=== PATIENT | female | born 1990 | race Caucasian/White ===

== ENCOUNTER 2018-10-28 17:07 | Emergency (ER) | payer MEDICAID ==
[2018-10-28] MEDS ORDERED: IBUPROFEN 800 MG TABLET PO ONE (18:00)
--- NOTE | 2018-10-28 18:04 | ER Document Report ---
HPI - HPI Patient complains to provider of: Right hip pain Time Seen by Provider: 10/28/18 17:31 Onset: Other Onset/Duration: Persistent - 2 days ago Quality of pain: Sharp Pain Level: 4 Context: Patient states she slipped on a wet surface and fell landing on her right hip. Patient complains of persistent right lower back pain and hip pain. Patient denies any head injury or loss of consciousness. Patient denies any urinary symptoms. Associated Symptoms: Other - Right lower back, hip pain Exacerbated by: Standing, Movement, Walking Relieved by: Denies Similar symptoms previously: No Recently seen / treated by doctor: No - ROS ROS below otherwise negative: Yes Systems Reviewed and Negative: Yes All other systems reviewed and negative - CONSTITUTIONAL Constitutional: DENIES: Fever - NEURO Neurology: DENIES: Headache, Weakness - RESPIRATORY Respiratory: DENIES: Trouble Breathing, Coughing - GASTROINTESTINAL Gastrointestinal: DENIES: Nausea, Patient vomiting - URINARY Urinary: DENIES: Dysuria - MUSCULOSKELETAL Musculoskeletal: REPORTS: Extremity pain, Back Pain - DERM Skin Color: Normal Skin Problems: None Past Medical History - General Information source: Patient - Social History Smoking Status: Current Every Day Smoker Smoking Education Provided: Yes Frequency of alcohol use: None Drug Abuse: None Occupation: None Lives with: Family Family History: Reviewed & Not Pertinent Pulmonary Medical History: Reports: Hx Asthma Musculoskeletal Medical History: Reports Other - Sciatica Past Surgical History: Reports: Hx Section, Hx Orthopedic Surgery Vertical Provider Document - CONSTITUTIONAL Agree With Documented VS: Yes Exam Limitations: No Limitations General Appearance: WD/WN, No Apparent Distress - INFECTION CONTROL TRAVEL OUTSIDE OF THE [place] IN LAST 30 DAYS: No - HEENT HEENT: Atraumatic, Normocephalic - NECK Neck: Normal Inspection, Supple - RESPIRATORY Respiratory: Breath Sounds Normal, No Respiratory Distress - CARDIOVASCULAR Cardiovascular: Regular Rate, Regular Rhythm - BACK Back: Abnormal Inspection - Right side joint tenderness, no lower lumbar midline tenderness step-off or deformity. negative: CVA Tenderness-Right, CVA Tenderness-Left - MUSCULOSKELETAL/EXTREMETIES Musculoskeletal/Extremeties: MAEW, Tender - Right hip tenderness to posterior and lateral aspect, tenderness increases with range of motion, No Edema. negative: Eccymosis - NEURO Level of Consciousness: Awake, Alert, Appropriate Motor/Sensory: No Motor Deficit Notes: No saddle anesthesia, negative straight leg test bilaterally, no foot drop - DERM Integumentary: Warm, Dry, No Rash Course - Re-evaluation Re-evalutation: 10/28/18 19:20 The patient presents with low back pain without signs of spinal cord compression , cauda equina syndrome, infection, aneurysm, or other serious etiology. The patient is neurologically intact. Given the extremely risk of these diagnoses further testing and evaluation for these possibilities does not appear to be indicated at this time. Patient has been instructed to return if the symptoms worsen or change in any way. - Laboratory Laboratory results interpreted by me: 10/28/18 19:19 Labs- Entire Visit 10/28/18 18:18 Urine HCG, Qual NEGATIVE - Diagnostic Test Radiology reviewed: Reports reviewed Discharge - Discharge Clinical Impression: Low back pain Qualifiers: Chronicity: acute Back pain laterality: right Sciatica presence: without sciatica Qualified Code(s): M54.5 - Low back pain Sprain of right hip Qualifiers: Encounter type: initial encounter Qualified Code(s): S73.101A - Unspecified sprain of right hip, initial encounter Condition: Stable Disposition: HOME, SELF-CARE Instructions: Low Back Pain ([facility]), Muscle Relaxers ([facility]), Sprain ([facility]) Additional Instructions: Return immediately for any new or worsening symptoms Followup with your primary care provider, call tomorrow to make a followup appointment Follow-up with orthopedics for any persistent pain or problems Prescriptions: Metaxalone [Skelaxin 800 mg Tablet] 800 mg PO ASDIR PRN #15 tablet PRN Reason: Naproxen [Naprosyn 250 Nmg Tablet] 1 tab PO BID #14 tablet Forms: Smoking Cessation Education Referrals: [facility] [Provider Group] - Follow up as needed
--- NOTE | 2018-10-28 19:13 | RADIOLOGY REPORT (SQ) ---
EXAM DESCRIPTION: HIP RIGHT AP/LATERAL COMPLETED DATE/TIME: 10/28/2018 7:05 pm REASON FOR STUDY: fall right hip pain COMPARISON: None. NUMBER OF VIEWS: Two views. TECHNIQUE: AP and frog-leg view of the right hip. LIMITATIONS: None. FINDINGS: MINERALIZATION: Normal. RIGHT HIP: No fracture or dislocation. No worrisome bone lesions. OPPOSITE HIP: No fracture or dislocation. No worrisome bone lesions. SOFT TISSUES: No findings. OTHER: No other significant finding. IMPRESSION: NEGATIVE STUDY OF THE RIGHT HIP. NO RADIOGRAPHIC EVIDENCE OF ACUTE INJURY. TECHNICAL DOCUMENTATION: JOB ID: [id number] [employer]- All Rights Reserved Reading location - IP/workstation name: [email or web address]
--- NOTE | 2018-10-28 19:13 | RADIOLOGY REPORT (SQ) ---
EXAM DESCRIPTION: L SPINE WHOLE COMPLETED DATE/TIME: 10/28/2018 7:05 pm REASON FOR STUDY: fall COMPARISON: None. NUMBER OF VIEWS: Five views including obliques. TECHNIQUE: AP, lateral, oblique, and sacral radiographic images acquired of the lumbar spine. LIMITATIONS: None. FINDINGS: MINERALIZATION: Normal. SEGMENTATION: Normal. No transitional anatomy. ALIGNMENT: Normal. VERTEBRAE: Maintained height. No fracture or worrisome bone lesion. DISCS: Preserved height. No significant osteophytes or end plate irregularity. POSTERIOR ELEMENTS: Pedicles and facets are intact. No pars defect or posterior arch defects. HARDWARE: None in the spine. PARASPINAL SOFT TISSUES: Normal. PELVIS: Intact as visualized. No fractures or worrisome bone lesions. SI joints intact. OTHER: No other significant finding. IMPRESSION: NORMAL 5 VIEW LUMBAR SPINE. TECHNICAL DOCUMENTATION: JOB ID: [id number] [employer]- All Rights Reserved Reading location - IP/workstation name: [email or web address]
[2018-10-28 19:49] VITALS: BP 102/56
== END 2018-10-28 19:48 | disposition home or self-care (01) ==
LOC: ER 17:07
DX: S73.101A Unspecified sprain of right hip, initial encounter (principal); M25.551 Pain in right hip; M54.5 Low back pain; W01.0XXA Fall on same level from slipping, tripping and stumbling without subsequent striking against object, initial encounter; J45.909 Unspecified asthma, uncomplicated; F17.200 Nicotine dependence, unspecified, uncomplicated
CPT/HCPCS: 99283; 81025; 73502; 72110; J3490

== ENCOUNTER 2019-03-18 15:25 | Emergency (ER) | payer MEDICAID ==
[2019-03-18 15:34] VITALS: BP 101/64
--- NOTE | 2019-03-18 16:32 | ER Document Report ---
ED Medical Screen (RME) - General Chief Complaint: Dizziness Stated Complaint: BLURRED VISION Time Seen by Provider: 03/18/19 16:28 Mode of Arrival: Wheelchair Information source: Patient, Relative Notes: 28-year-old female presents to ED for concern fusion and feeling horrible. She states that her hearing is like she is in a tunnel she is got blurry vision and she feels like she is bowling inside of her head and chest. She denies any pain. Mother states she went from being fine a little off balance to have coherent within about an hour and a half. Patient states she is down to 3 times in the past never went and saw a provider. She states she was living with her aunt and her aunt told her that she had hypoglycemia and gave her drinks to eat and she was okay. She states she just went to a new doctor and had blood work earlier this week. She has a history of asthma and she had a . She is does smoke a pack a day. Patient is able to answer questions if you give her time. Lungs clear to auscultation. I have greeted and performed a rapid initial assessment of this patient. A comprehensive ED assessment and evaluation of the patient, analysis of test results and completion of medical decision making process will be conducted by an additional ED providers. TRAVEL OUTSIDE OF THE [place] IN LAST 30 DAYS: No - Related Data Allergies/Adverse Reactions: Iodine and Iodide Containing Produc Allergy (Verified 03/18/19 15:28) latex Allergy (Verified 03/18/19 15:28) Penicillins Allergy (Verified 03/18/19 15:28) promethazine [From Phenergan] Allergy (Verified 03/18/19 15:28) Past Medical History - Social History Chew tobacco use (# tins/day): No Frequency of alcohol use: Social Drug Abuse: None Pulmonary Medical History: Reports: Hx Asthma Renal/ Medical History: Denies: Hx Peritoneal Dialysis Past Surgical History: Reports: Hx Section, Hx Gynecologic Surgery - D&C, Hx Orthopedic Surgery Physical Exam - Vital signs Vitals: Temp Pulse Resp BP Pulse Ox 97.7 F 65 14 101/64 97 03/18/19 15:33 03/18/19 15:33 03/18/19 15:33 03/18/19 15:33 03/18/19 15:33 Course - Vital Signs Vital signs: Temp Pulse Resp BP Pulse Ox 97.7 F 65 14 101/64 97 03/18/19 15:33 03/18/19 15:33 03/18/19 15:33 03/18/19 15:33 03/18/19 15:33
[2019-03-18 17:40] LABS: ABSOLUTE EOSINOPHILS # (AUTO) 0.1 10^3/uL (0.0-0.6); ABSOLUTE LYMPHOCYTES (AUTO) 2.8 10^3/uL (0.5-4.7); ABSOLUTE MONOCYTES (AUTO) 0.4 10^3/uL (0.1-1.4); ABSOLUTE NEUT (AUTO) 4.8 10^3/uL (1.7-8.2); BASOPHILS % (AUTO) 0.3 % (0-2); EOSINOPHILS % (AUTO) 0.8 % (0-6); HEMATOCRIT 39.3 % (36.0-47.0); HEMOGLOBIN 13.4 g/dL (12.0-15.5); LYMPHOCYTES % (AUTO) 34.5 % (13-45); MEAN CORPUSCULAR HEMOGLOBIN 31.7 pg (27.0-33.4); MEAN CORPUSCULAR HGB CONC 34.2 g/dL (32.0-36.0); MEAN CORPUSCULAR VOLUME 93 fl (80-97); MONOCYTES % (AUTO) 5.3 % (3-13); PLATELET COUNT 294 10^3/uL (150-450); RED BLOOD COUNT 4.24 10^6/uL (3.72-5.28); RED CELL DISTRIBUTION WIDTH 12.9 % (11.5-14.0); SEGMENTED NEUTROPHILS % (AUTO) 59.1 % (42-78); TOTAL CELLS COUNTED % (AUTO) 100 %; WHITE BLOOD COUNT 8.1 10^3/uL (4.0-10.5)
[2019-03-18 17:56] LABS: APPEARANCE,URINE CLEAR; BILIRUBIN,URINE NEGATIVE (NEGATIVE); COLOR,URINE STRAW; GLUCOSE, URINE NEGATIVE (NEGATIVE); KETONES,URINE NEGATIVE (NEGATIVE); LEUKOCYTE ESTERASE,URINE NEGATIVE (NEGATIVE); NITRITE,URINE NEGATIVE (NEGATIVE); PROTEIN,URINE NEGATIVE (NEGATIVE); UROBILINOGEN,URINE NEGATIVE mg/dL (<2.0)
[2019-03-18 18:05] LABS: ALANINE AMINOTRANSFERASE 20 U/L (9-52); ALBUMIN 3.7 g/dL (3.5-5.0); ALKALINE PHOSPHATASE 54 U/L (38-126); ANION GAP 5 (5-19); ASPARTATE AMINO TRANSFERASE 17 U/L (14-36); BILIRUBIN,DIRECT 0.2 mg/dL (0.0-0.4); BILIRUBIN,TOTAL 0.6 mg/dL (0.2-1.3); BLOOD UREA NITROGEN 13 mg/dL (7-20); CALCIUM 9.2 mg/dL (8.4-10.2); CARBON DIOXIDE 26 mmol/L (22-30); CHLORIDE 107 mmol/L (98-107); GLUCOSE 90 mg/dL (75-110); POTASSIUM 4.7 mmol/L (3.6-5.0); SODIUM 138.3 mmol/L (137-145); TOTAL PROTEIN 6.3 g/dL (6.3-8.2)
[2019-03-18 18:13] LABS: URINE AMPHETAMINES SCREEN NEGATIVE; URINE BARBITURATES SCREEN NEGATIVE; URINE BENZODIAZEPINES SCREEN NEGATIVE; URINE COCAINE SCREEN NEGATIVE; URINE MARIJUANA (THC) SCREEN NEGATIVE; URINE METHADONE SCREEN NEGATIVE; URINE PHENCYCLIDINE SCREEN NEGATIVE
== END 2019-03-18 17:22 | disposition left against medical advice (07) ==
LOC: ER 15:25
DX: Z53.21 Procedure and treatment not carried out due to patient leaving prior to being seen by health care provider (principal); H53.8 Other visual disturbances; R42 Dizziness and giddiness; R73.9 Hyperglycemia, unspecified; J45.909 Unspecified asthma, uncomplicated
CPT/HCPCS: 36415; 80053; 80307; 81001; 82962; 84703; 85025; 99281

== ENCOUNTER 2019-06-13 23:49 | Emergency (ER) | payer MEDICAID ==
[2019-06-14] MEDS ORDERED: PREDNISONE 20 MG TABLET PO ONE (00:12)
[2019-06-14] MEDS ORDERED: FAMOTIDINE 20 MG TABLET PO ONE (00:12)
[2019-06-14] MEDS ORDERED: DIPHENHYDRAMINE HCL 50 MG CAPSULE PO ONE (00:12)
--- NOTE | 2019-06-14 00:13 | ER Document Report ---
ED General - General Chief Complaint: Breathing Difficulty Stated Complaint: POSSIBLE ALLERGIC REACTION Time Seen by Provider: 06/14/19 00:04 Primary Care Provider: SUSY MENG FNP-C [Primary Care Provider] - Follow up as needed Notes: 28-year-old female had some garlic or something and developed hives and itching. States that she has multiple allergies. Was nervous so came here. Took a Benadryl prior to arrival. Denies any difficulty breathing, tongue swelling. States that she was just itching all over and had some redness on her neck. TRAVEL OUTSIDE OF THE [place] IN LAST 30 DAYS: No - HPI Onset: Just prior to arrival Onset/Duration: Sudden Quality of pain: No pain Severity: Moderate Pain Level: Denies - Related Data Allergies/Adverse Reactions: Iodine and Iodide Containing Produc Allergy (Verified 03/18/19 15:28) latex Allergy (Verified 03/18/19 15:28) Penicillins Allergy (Verified 03/18/19 15:28) promethazine [From Phenergan] Allergy (Verified 03/18/19 15:28) Past Medical History - General Information source: Patient - Social History Smoking Status: Current Every Day Smoker Frequency of alcohol use: None Drug Abuse: None Lives with: Family Family History: Reviewed & Not Pertinent Pulmonary Medical History: Reports: Hx Asthma Renal/ Medical History: Denies: Hx Peritoneal Dialysis Past Surgical History: Reports: Hx Section, Hx Gynecologic Surgery - D&C, Hx Orthopedic Surgery Review of Systems - Review of Systems Notes: Constitutional: denies: Chills, Diaphoresis, Fever, Malaise, Weakness EENT: denies: Eye discharge, Blurred vision, Tearing, Double vision, Nose congestion, Nose discharge, Throat swelling, Mouth pain Cardiovascular: denies: Palpitations, Heart racing, Orthopnea, Dyspnea, Chest pain Respiratory: denies: Cough, Hurts to breathe, Wheezing, Shortness of breath Gastrointestinal: denies: Abdominal pain, Diarrhea, Nausea, Vomiting, Black stools, bright red blood in stool Genitourinary: denies: Burning, Dysuria, Discharge, Frequency, Flank pain, Hematuria Musculoskeletal: denies: Joint pain, Joint swelling, Muscle pain, Muscle stiffness, back pain Hematologic/Lymphatic: denies: Anemia, Easy bleeding, Easy bruising, Blood clots Neurological/Psychological: denies: Confusion, Dementia, Depression, Loss of consciousness Skin: No lesions, no masses, no skin breakdown, no abscesses, positive for rash Physical Exam - Vital signs Vitals: Temp Pulse Resp BP Pulse Ox 97.9 F 76 16 107/55 L 98 06/14/19 00:04 06/14/19 00:04 06/14/19 00:04 06/14/19 00:04 06/14/19 00:04 Interpretation: Normal - General General appearance: Appears well, Alert - HEENT Head: Normocephalic, Atraumatic Eyes: Normal Pupils: PERRL - Respiratory Respiratory status: No respiratory distress Chest status: Nontender Breath sounds: Normal Chest palpation: Normal - Cardiovascular Rhythm: Regular Heart sounds: Normal auscultation Murmur: No - Abdominal Inspection: Normal Distension: No distension Bowel sounds: Normal Tenderness: Nontender Organomegaly: No organomegaly - Back Back: Normal, Nontender - Extremities General upper extremity: Normal inspection, Nontender, Normal color, Normal ROM, Normal temperature General lower extremity: Normal inspection, Nontender, Normal color, Normal ROM, Normal temperature, Normal weight bearing. No: Toshia's sign - Neurological Neuro grossly intact: Yes Cognition: Normal Orientation: AAOx4 Althea Coma Scale Eye Opening: Spontaneous [place]a Coma Scale Verbal: Oriented [place] Coma Scale Motor: Obeys Commands Althea Coma Scale Total: 15 Speech: Normal Motor strength normal: LUE, RUE, LLE, RLE Sensory: Normal - Psychological Associated symptoms: Normal affect, Normal mood - Skin Skin Temperature: Warm Skin Moisture: Dry Skin Color: Normal Course - Re-evaluation Re-evalutation: 06/14/19 01:56 Patient was given oral medication as she had no sign of a rash, angioedema, lip swelling or other issues. She had no tachycardia when I listen to her heart. She had no wheezing. Patient was observed here for's several hours. Will DC at this time. She did receive Benadryl, Pepcid and prednisone. - Vital Signs Vital signs: Temp Pulse Resp BP Pulse Ox 98.5 F 76 18 111/57 L 97 06/14/19 00:07 06/14/19 00:04 06/14/19 00:07 06/14/19 00:07 06/14/19 00:07 Discharge - Discharge Clinical Impression: Acute allergic reaction Qualifiers: Encounter type: initial encounter Qualified Code(s): T78.40XA - Allergy, unspecified, initial encounter Condition: Good Disposition: HOME, SELF-CARE Instructions: Acute Allergic Reaction ([facility]) Prescriptions: Diphenhydramine HCl 50 mg PO Q8H PRN 3 Days #10 tablet PRN Reason: Rash Prednisone [Deltasone 20 mg Tablet] 3 tab PO DAILY 2 Days #6 tablet Ranitidine HCl [Zantac] 150 mg PO BID 3 Days #6 tablet Referrals: SUSY MENG FNP-C [Primary Care Provider] - Follow up as needed
[2019-06-14 03:16] VITALS: BP 104/66
== END 2019-06-14 02:35 | disposition home or self-care (01) ==
LOC: ER 23:49
DX: T78.40XA Allergy, unspecified, initial encounter (principal); X58.XXXA Exposure to other specified factors, initial encounter; J45.909 Unspecified asthma, uncomplicated; F17.200 Nicotine dependence, unspecified, uncomplicated; Z91.040 Latex allergy status; Z88.0 Allergy status to penicillin; Z88.8 Allergy status to other drugs, medicaments and biological substances
CPT/HCPCS: 99284; J3490 ×2; J7512

== ENCOUNTER 2019-06-30 16:49 | Emergency (ER) | payer MEDICAID ==
[2019-06-30 18:26] LABS: ABSOLUTE EOSINOPHILS # (AUTO) 0.1 10^3/uL (0.0-0.6); ABSOLUTE LYMPHOCYTES (AUTO) 2.4 10^3/uL (0.5-4.7); ABSOLUTE MONOCYTES (AUTO) 0.5 10^3/uL (0.1-1.4); ABSOLUTE NEUT (AUTO) 5.1 10^3/uL (1.7-8.2); BASOPHILS % (AUTO) 0.3 % (0-2); EOSINOPHILS % (AUTO) 0.9 % (0-6); HEMATOCRIT 41.9 % (36.0-47.0); HEMOGLOBIN 14.3 g/dL (12.0-15.5); LYMPHOCYTES % (AUTO) 29.5 % (13-45); MEAN CORPUSCULAR HEMOGLOBIN 31.4 pg (27.0-33.4); MEAN CORPUSCULAR VOLUME 92 fl (80-97); MONOCYTES % (AUTO) 6.3 % (3-13); PLATELET COUNT 335 10^3/uL (150-450); RED BLOOD COUNT 4.54 10^6/uL (3.72-5.28); TOTAL CELLS COUNTED % (AUTO) 100 %; WHITE BLOOD COUNT 8.2 10^3/uL (4.0-10.5)
[2019-06-30 18:28] LABS: APPEARANCE,URINE SLIGHTLY-CLOUDY; BILIRUBIN,URINE NEGATIVE (NEGATIVE); COLOR,URINE YELLOW; GLUCOSE, URINE NEGATIVE (NEGATIVE); KETONES,URINE NEGATIVE (NEGATIVE); LEUKOCYTE ESTERASE,URINE NEGATIVE (NEGATIVE); NITRITE,URINE NEGATIVE (NEGATIVE); PROTEIN,URINE NEGATIVE (NEGATIVE); URINE SPECIFIC GRAVITY 1.024; UROBILINOGEN,URINE NEGATIVE mg/dL (<2.0)
[2019-06-30 18:44] LABS: ALANINE AMINOTRANSFERASE 21 U/L (9-52); ALBUMIN 3.4 g/dL (3.5-5.0); ALKALINE PHOSPHATASE 52 U/L (38-126); ANION GAP 5 (5-19); ASPARTATE AMINO TRANSFERASE 20 U/L (14-36); BILIRUBIN,DIRECT 0.1 mg/dL (0.0-0.4); BILIRUBIN,TOTAL 0.5 mg/dL (0.2-1.3); BLOOD UREA NITROGEN 11 mg/dL (7-20); CALCIUM 9.5 mg/dL (8.4-10.2); CARBON DIOXIDE 27 mmol/L (22-30); CHLORIDE 107 mmol/L (98-107); GLUCOSE 87 mg/dL (75-110); POTASSIUM 4.6 mmol/L (3.6-5.0)
--- NOTE | 2019-06-30 19:13 | ER Document Report ---
ED General - General Chief Complaint: Tremor Stated Complaint: HEAT EXPOSURE Time Seen by Provider: 06/30/19 17:32 Primary Care Provider: SUSY MENG FNP-C [Primary Care Provider] - Follow up as needed Mode of Arrival: Ambulatory Information source: Patient Notes: Patient is an otherwise healthy 28-year-old female presenting to the emergency department after feeling "shaky" after donating plasma. Patient reports that she believes she may have had a heat stroke. Patient reports history of having several heat strokes in the past. Patient denies spending any time out in the heat today. She denies any nausea, vomiting, diarrhea or fevers. She states that all symptoms have resolved at the time of arrival. She states that her symptoms happened while she was at the grocery store and she felt very shaky. Patient's mother thinks her blood sugar may have been low. Patient is not a diabetic. TRAVEL OUTSIDE OF THE [place] IN LAST 30 DAYS: No - Related Data Allergies/Adverse Reactions: Iodine and Iodide Containing Produc Allergy (Verified 06/30/19 16:51) latex Allergy (Verified 06/30/19 16:51) Penicillins Allergy (Verified 06/30/19 16:51) promethazine [From Phenergan] Allergy (Verified 06/30/19 16:51) Past Medical History - General Information source: Patient - Social History Smoking Status: Current Every Day Smoker Frequency of alcohol use: None Drug Abuse: None Family History: Reviewed & Not Pertinent Patient has suicidal ideation: No Patient has homicidal ideation: No Pulmonary Medical History: Reports: Hx Asthma Renal/ Medical History: Denies: Hx Peritoneal Dialysis Past Surgical History: Reports: Hx Section, Hx Gynecologic Surgery - D&C, Hx Orthopedic Surgery Review of Systems - Review of Systems Constitutional: No symptoms reported EENT: No symptoms reported Cardiovascular: No symptoms reported Respiratory: No symptoms reported Gastrointestinal: No symptoms reported Genitourinary: No symptoms reported Female Genitourinary: No symptoms reported Musculoskeletal: No symptoms reported Skin: No symptoms reported Hematologic/Lymphatic: No symptoms reported Neurological/Psychological: No symptoms reported Physical Exam - Vital signs Vitals: Temp Pulse Resp BP Pulse Ox 98.6 F 100 20 115/60 98 06/30/19 16:57 06/30/19 16:57 06/30/19 16:57 06/30/19 16:57 06/30/19 16:57 - Notes Notes: PHYSICAL EXAMINATION: GENERAL: Well-appearing, well-nourished and in no acute distress. HEAD: Atraumatic, normocephalic. EYES: Pupils equal round and reactive to light, extraocular movements intact, conjunctiva are normal. ENT: Nares patent, oropharynx clear without exudates. Moist mucous membranes. NECK: Normal range of motion, supple without lymphadenopathy LUNGS: Breath sounds clear to auscultation bilaterally and equal. No wheezes rales or rhonchi. HEART: Regular rate and rhythm without murmurs ABDOMEN: Soft, nontender, nondistended abdomen. No guarding, no rebound. No masses appreciated. Female : deferred Musculoskeletal: Normal range of motion, no pitting or edema. No cyanosis. NEUROLOGICAL: Cranial nerves grossly intact. Normal speech, normal gait. Normal sensory, motor exams PSYCH: Normal mood, normal affect. SKIN: Warm, Dry, normal turgor, no rashes or lesions noted. Course - Re-evaluation Re-evalutation: Patient's work-up today was unremarkable as outlined below. Her EKG showed a sinus rhythm, normal rate, normal rhythm, normal axis, no ST segment elevations or depressions. All test results were discussed with patient. I did recommend that patient keep something handy with her such as a small snack or something with glucose in it as from the sounds of it she most likely had a hypoglycemic episode that resolved prior to arrival to the emergency department. I further explained to the patient that I do not believe she had a heat stroke considering she did not spend any time in the heat today. Patient states she is ready to go and that she verbalizes understanding of all test results. Laboratory 06/30/19 06/30/19 06/30/19 17:40 18:05 18:05 WBC 8.2 RBC 4.54 Hgb 14.3 Hct 41.9 MCV 92 MCH 31.4 MCHC 34.0 RDW 14.0 Plt Count 335 Seg Neutrophils % 63.0 Lymphocytes % 29.5 Monocytes % 6.3 Eosinophils % 0.9 Basophils % 0.3 Absolute Neutrophils 5.1 Absolute Lymphocytes 2.4 Absolute Monocytes 0.5 Absolute Eosinophils 0.1 Absolute Basophils 0.0 Sodium 139.0 Potassium 4.6 Chloride 107 Carbon Dioxide 27 Anion Gap 5 BUN 11 Creatinine 0.84 Est GFR ( Amer) > 60 Est GFR (Non-Af Amer) > 60 Glucose 87 Calcium 9.5 Magnesium 2.0 Total Bilirubin 0.5 Direct Bilirubin 0.1 Neonat Total Bilirubin Not Reportable Neonat Direct Bilirubin Not Reportable Neonat Indirect Bili Not Reportable AST 20 ALT 21 Alkaline Phosphatase 52 Total Protein 6.0 L Albumin 3.4 L Urine Color YELLOW Urine Appearance SLIGHTLY-CLOUDY Urine pH 5.0 Ur Specific Tina 1.024 Urine Protein NEGATIVE Urine Glucose (UA) NEGATIVE Urine Ketones NEGATIVE Urine Blood LARGE H Urine Nitrite NEGATIVE Urine Bilirubin NEGATIVE Urine Urobilinogen NEGATIVE Ur Leukocyte Esterase NEGATIVE Urine WBC (Auto) 2 Urine RBC (Auto) 2 U Hyaline Cast (Auto) 1 Squamous Epi Cells Auto 3 Urine Mucus (Auto) RARE Urine Ascorbic Acid NEGATIVE - Vital Signs Vital signs: Temp Pulse Resp BP Pulse Ox 98.3 F 78 18 108/75 98 06/30/19 19:25 06/30/19 19:25 06/30/19 19:25 06/30/19 19:25 06/30/19 19:25 - Laboratory Result Diagrams: 06/30/19 18:05 06/30/19 18:05 Laboratory results interpreted by me: 06/30/19 06/30/19 17:40 18:05 Total Protein 6.0 L Albumin 3.4 L Urine Blood LARGE H Discharge - Discharge Clinical Impression: Dizziness, Weakness Fatigue Qualifiers: Fatigue type: unspecified Qualified Code(s): R53.83 - Other fatigue Condition: Stable Disposition: HOME, SELF-CARE Additional Instructions: Your work-up here in the emergency department today was unremarkable. Please continue to give a small snack with you in case you have another episode like this when you experience dizziness and sweatiness. Please follow-up with your primary care provider, let them know you are seen in the emergency department. Return to the emergency department for any new or worsening symptoms. Referrals: SUSY MENG FNP-C [Primary Care Provider] - Follow up as needed
[2019-06-30 19:30] VITALS: BP 108/75
--- NOTE | 2019-07-01 09:33 | EKG REPORT ---
SEVERITY:- NORMAL ECG - SINUS RHYTHM : Confirmed by: Holly Victor MD 30-Jun-2019 21:29:38
== END 2019-06-30 19:25 | disposition home or self-care (01) ==
LOC: ER 16:49
DX: R42 Dizziness and giddiness (principal); R53.1 Weakness; R53.83 Other fatigue; J45.909 Unspecified asthma, uncomplicated; F17.200 Nicotine dependence, unspecified, uncomplicated; Z91.040 Latex allergy status; Z88.0 Allergy status to penicillin; Z88.8 Allergy status to other drugs, medicaments and biological substances
CPT/HCPCS: 36415; 80053; 81001; 83735; 85025; 93005; 93010; 99284

== ENCOUNTER 2019-11-11 15:56 | Emergency (ER) | payer MEDICAID ==
[2019-11-11] MEDS ORDERED: METOCLOPRAMIDE HCL INJ/PF 10 MG/2 ML SDV IV ONE (16:19)
--- NOTE | 2019-11-11 16:21 | ER Document Report ---
ED Medical Screen (RME) - General Chief Complaint: Vomiting Stated Complaint: VOMITING Time Seen by Provider: 11/11/19 16:16 Primary Care Provider: SUSY MENG FNP-C [Primary Care Provider] - Follow up as needed TRAVEL OUTSIDE OF THE [place] IN LAST 30 DAYS: No - HPI Notes: 11/11/19 16:20 Patient is a 29-year-old female no significant past medical history who presents complaining of nausea, vomiting, diarrhea over the past week. Patient states that she will have some abdominal pain during the incident, but currently is pain-free. She is urinating normally. No other vaginal discharge, odor, or bleeding. No other concerns or complaints. Surgical history significant for C- section. No fever, chest pain, shortness of breath, dysuria, back pain. I have treated and performed a rapid initial assessment of this patient. A comprehensive ED assessment and evaluation of the patient, analysis of test results and completion of medical decision making process will be conducted by additional ED providers. PHYSICAL EXAMINATION: GENERAL: Well-appearing, well-nourished and in no acute distress. A&Ox4. Answers questions appropriately. Abdomen: Limited exam in triage, but soft and grossly nontender. - Related Data Allergies/Adverse Reactions: Iodine and Iodide Containing Produc Allergy (Verified 11/11/19 16:15) latex Allergy (Verified 11/11/19 16:15) Penicillins Allergy (Verified 11/11/19 16:15) promethazine [From Phenergan] Allergy (Verified 11/11/19 16:15) Past Medical History - Social History Chew tobacco use (# tins/day): No Frequency of alcohol use: None Drug Abuse: None Pulmonary Medical History: Reports: Hx Asthma Renal/ Medical History: Denies: Hx Peritoneal Dialysis Past Surgical History: Reports: Hx Section, Hx Gynecologic Surgery - D&C, Hx Orthopedic Surgery Physical Exam - Vital signs Vitals: Temp Pulse Resp BP Pulse Ox 98.0 F 65 16 102/56 L 98 11/11/19 16:12 11/11/19 16:12 11/11/19 16:12 11/11/19 16:12 11/11/19 16:12 Course - Vital Signs Vital signs: Temp Pulse Resp BP Pulse Ox 98.0 F 65 16 102/56 L 98 11/11/19 16:15 11/11/19 16:15 11/11/19 16:15 11/11/19 16:15 11/11/19 16:15 Doctor's Discharge - Discharge Referrals: SUSY MENG FNP-C [Primary Care Provider] - Follow up as needed
[2019-11-11 16:52] LABS: ABSOLUTE EOSINOPHILS # (AUTO) 0.1 10^3/uL (0.0-0.6); ABSOLUTE LYMPHOCYTES (AUTO) 2.4 10^3/uL (0.5-4.7); ABSOLUTE MONOCYTES (AUTO) 0.5 10^3/uL (0.1-1.4); ABSOLUTE NEUT (AUTO) 4.9 10^3/uL (1.7-8.2); BASOPHILS % (AUTO) 0.5 % (0-2); EOSINOPHILS % (AUTO) 1.8 % (0-6); HEMATOCRIT 40.1 % (36.0-47.0); HEMOGLOBIN 13.6 g/dL (12.0-15.5); LYMPHOCYTES % (AUTO) 30.2 % (13-45); MEAN CORPUSCULAR HEMOGLOBIN 31.6 pg (27.0-33.4); MEAN CORPUSCULAR HGB CONC 34.1 g/dL (32.0-36.0); MEAN CORPUSCULAR VOLUME 93 fl (80-97); MONOCYTES % (AUTO) 6.3 % (3-13); PLATELET COUNT 276 10^3/uL (150-450); RED BLOOD COUNT 4.32 10^6/uL (3.72-5.28); RED CELL DISTRIBUTION WIDTH 14.2 % (11.5-14.0); SEGMENTED NEUTROPHILS % (AUTO) 61.2 % (42-78); TOTAL CELLS COUNTED % (AUTO) 100 %
[2019-11-11 17:04] LABS: ALBUMIN 3.7 g/dL (3.5-5.0); ALKALINE PHOSPHATASE 46 U/L (38-126); ANION GAP 8 (5-19); ASPARTATE AMINO TRANSFERASE 20 U/L (14-36); BILIRUBIN,TOTAL 0.7 mg/dL (0.2-1.3); BLOOD UREA NITROGEN 7 mg/dL (7-20); CALCIUM 9.1 mg/dL (8.4-10.2); CARBON DIOXIDE 25 mmol/L (22-30); CHLORIDE 106 mmol/L (98-107); TOTAL PROTEIN 6.5 g/dL (6.3-8.2)
[2019-11-11] MEDS: NORMAL SALINE 1000 ML 1,000 ML IV PRN ×2 (17:05→17:26)
[2019-11-11 17:18] LABS: GLUCOSE 50 mg/dL (75-110)
[2019-11-11 18:44] LABS: APPEARANCE,URINE SLIGHTLY-CLOUDY; BILIRUBIN,URINE NEGATIVE (NEGATIVE); COLOR,URINE YELLOW; GLUCOSE, URINE NEGATIVE (NEGATIVE); KETONES,URINE NEGATIVE (NEGATIVE); PROTEIN,URINE NEGATIVE (NEGATIVE); URINE SPECIFIC GRAVITY 1.006; UROBILINOGEN,URINE NEGATIVE mg/dL (<2.0)
[2019-11-11] MEDS ORDERED: ONDANSETRON ODT 4 MG TAB (6 TAB/ER DISP) PO PRN (19:06)
--- NOTE | 2019-11-11 19:11 | ER Document Report ---
ED General - General Chief Complaint: Vomiting Stated Complaint: VOMITING Time Seen by Provider: 11/11/19 16:16 Primary Care Provider: SUSY MENG FNP-C [Primary Care Provider] - Follow up as needed TRAVEL OUTSIDE OF THE [place] IN LAST 30 DAYS: No - HPI Notes: Patient is a 29-year-old female who presents emergency department for evaluation of vomiting and diarrhea. She states she said symptoms for about a week. She has had one episode of emesis and 7 episodes of diarrhea in the last 24 hours. She admits that she is getting very hungry, had pizza yesterday, then immedi ately had diarrhea. Her diarrhea is an increased frequency, not significantly loose stool. She has some cramping abdominal pain prior to her bowel movements, but denies any pain at this time. No recent travel, no recent antibiotic therapy. No recent hospitalization. - Related Data Allergies/Adverse Reactions: Iodine and Iodide Containing Produc Allergy (Verified 11/11/19 16:15) latex Allergy (Verified 11/11/19 16:15) Penicillins Allergy (Verified 11/11/19 16:15) promethazine [From Phenergan] Allergy (Verified 11/11/19 16:15) Past Medical History - General Information source: Patient - Social History Smoking Status: Current Every Day Smoker Chew tobacco use (# tins/day): No Frequency of alcohol use: None Drug Abuse: None Family History: Reviewed & Not Pertinent Patient has suicidal ideation: No Patient has homicidal ideation: No Pulmonary Medical History: Reports: Hx Asthma Renal/ Medical History: Denies: Hx Peritoneal Dialysis Past Surgical History: Reports: Hx Section, Hx Gynecologic Surgery - D&C, Hx Orthopedic Surgery Review of Systems - Review of Systems Constitutional: No symptoms reported EENT: No symptoms reported Cardiovascular: No symptoms reported Respiratory: No symptoms reported Gastrointestinal: See HPI Genitourinary: No symptoms reported Female Genitourinary: No symptoms reported Musculoskeletal: No symptoms reported Skin: No symptoms reported Neurological/Psychological: No symptoms reported Physical Exam - Vital signs Vitals: Temp Pulse Resp BP Pulse Ox 98.0 F 65 16 102/56 L 98 11/11/19 16:12 11/11/19 16:12 11/11/19 16:12 11/11/19 16:12 11/11/19 16:12 - Notes Notes: Vital signs reviewed, please refer to chart. Head is normocephalic, atraumatic. Pupils equal round, reactive to light. Neck is supple without meningismus. Heart is regular rate and rhythm. Lungs are clear to auscultation bilaterally. Abdomen is soft, nontender, normoactive bowel sounds throughout. Extremities without cyanosis, clubbing. Posterior calves are nontender. Peripheral pulses are equal. Skin is warm and dry. Patient is awake, alert, neurological exam is nonfocal. Course - Re-evaluation Re-evalutation: 11/11/19 19:22 Patient presents emergency department for evaluation of vomiting, diarrhea. She was initially seen through triage. On evaluation of labs, it was noted that her blood glucose was 50. I evaluated the patient and she was awake and alert, normal neurologically. She was given juice. Recheck meter blood sugar over 800. Patient tolerated this well. I explained to the patient that I believe that she should advance her diet slowly, greasy foods would certainly increase her chances of diarrhea and she voiced understanding of this. Otherwise, she was sent with nestor Gentile on diarrhea, vomiting, and hyperglycemia. She is to follow-up with primary care next week, return to the ED with worsening or new concerning symptoms of any sort. - Vital Signs Vital signs: Temp Pulse Resp BP Pulse Ox 98.4 F 56 L 16 101/50 L 100 11/11/19 19:15 11/11/19 19:15 11/11/19 19:15 11/11/19 19:15 11/11/19 19:15 - Laboratory Result Diagrams: 11/11/19 16:27 11/11/19 16:27 Laboratory results interpreted by me: 11/11/19 11/11/19 11/11/19 16:27 16:27 19:09 RDW 14.2 H Glucose 50 L POC Glucose 121 H Discharge - Discharge Clinical Impression: Hypoglycemia Nausea & vomiting Qualifiers: Vomiting type: unspecified Vomiting Intractability: non-intractable Qualified Code(s): R11.2 - Nausea with vomiting, unspecified Diarrhea Qualifiers: Diarrhea type: presumed infectious Qualified Code(s): R19.7 - Diarrhea, unspecified Condition: Stable Disposition: HOME, SELF-CARE Instructions: Antinausea Medication ([facility]), Diarrhea, Nonspecific ([facility]), Intravenous (IV) Fluids ([facility]) Additional Instructions: Please stay hydrated, drink chloé boby/juice to keep blood sugar up. Zofran as needed for nausea. Citrus diet, advance slowly to normal diet. Follow up with PCP next week. Return to the ER with worsening or new concerning symptoms. Referrals: SUSY MENG FNP-C [Primary Care Provider] - Follow up as needed
[2019-11-11 19:16] VITALS: BP 101/50
== END 2019-11-11 19:28 | disposition home or self-care (01) ==
LOC: ER 15:56
DX: R11.2 Nausea with vomiting, unspecified (principal); R19.7 Diarrhea, unspecified; E16.2 Hypoglycemia, unspecified; R10.9 Unspecified abdominal pain; J45.909 Unspecified asthma, uncomplicated; F17.200 Nicotine dependence, unspecified, uncomplicated; Z91.040 Latex allergy status; Z88.0 Allergy status to penicillin; Z88.8 Allergy status to other drugs, medicaments and biological substances
CPT/HCPCS: 36415; 82962; 83690; 85025; 81025; 80053; 81001; J2765; J7030; 96361; 96374; 99284

== ENCOUNTER 2020-01-03 16:56 | Emergency (ER) | payer MEDICAID | END 2020-01-03 18:47 | disposition left against medical advice (07) | LOC: ER 16:56 | DX: Z53.21 Procedure and treatment not carried out due to patient leaving prior to being seen by health care provider (principal) ==

== ENCOUNTER 2020-01-04 08:52 | Emergency (ER) | payer MEDICAID ==
[2020-01-04 08:57] VITALS: BP 104/58
--- NOTE | 2020-01-04 09:37 | ER Document Report ---
ED Medical Screen (RME) - General Chief Complaint: Vomiting Stated Complaint: VOMITING Time Seen by Provider: 01/04/20 09:35 Primary Care Provider: SUSY MENG FNP-C [Primary Care Provider] - Follow up as needed Mode of Arrival: Ambulatory Information source: Patient Notes: 29-year-old female presented to ED for complaint of nausea vomiting diarrhea and abdominal pain off and on for about a month. She states she has been to the emergency room for the same and went to her primary doctor but it keeps returning. She is alert oriented respirations regular nonlabored speaking in full sentences. She states that she has a hard time eating due to the nausea and vomiting and the stool is like pure water. Bowel sounds are active, abdomen soft. I have greeted and performed a rapid initial assessment of this patient. A comprehensive ED assessment and evaluation of the patient, analysis of test results and completion of medical decision making process will be conducted by an additional ED providers. TRAVEL OUTSIDE OF THE [place] IN LAST 30 DAYS: No - Related Data Allergies/Adverse Reactions: Iodine and Iodide Containing Produc Allergy (Verified 11/11/19 16:15) latex Allergy (Verified 11/11/19 16:15) Penicillins Allergy (Verified 11/11/19 16:15) promethazine [From Phenergan] Allergy (Verified 11/11/19 16:15) Past Medical History Pulmonary Medical History: Reports: Hx Asthma Renal/ Medical History: Denies: Hx Peritoneal Dialysis Past Surgical History: Reports: Hx Section, Hx Gynecologic Surgery - D&C, Hx Orthopedic Surgery Physical Exam - Vital signs Vitals: Temp Pulse Resp BP Pulse Ox 98.3 F 67 20 104/58 L 97 01/04/20 08:55 01/04/20 08:55 01/04/20 08:55 01/04/20 08:55 01/04/20 08:55 Course - Vital Signs Vital signs: Temp Pulse Resp BP Pulse Ox 98.3 F 67 20 104/58 L 97 01/04/20 08:55 01/04/20 08:55 01/04/20 08:55 01/04/20 08:55 01/04/20 08:55 Doctor's Discharge - Discharge Referrals: SUSY MENG FNP-C [Primary Care Provider] - Follow up as needed
[2020-01-04 10:06] LABS: ABSOLUTE EOSINOPHILS # (AUTO) 0.1 10^3/uL (0.0-0.6); ABSOLUTE LYMPHOCYTES (AUTO) 1.8 10^3/uL (0.5-4.7); ABSOLUTE MONOCYTES (AUTO) 0.6 10^3/uL (0.1-1.4); ABSOLUTE NEUT (AUTO) 6.4 10^3/uL (1.7-8.2); BASOPHILS % (AUTO) 0.3 % (0-2); EOSINOPHILS % (AUTO) 1.2 % (0-6); HEMATOCRIT 39.7 % (36.0-47.0); HEMOGLOBIN 13.6 g/dL (12.0-15.5); LYMPHOCYTES % (AUTO) 20.2 % (13-45); MEAN CORPUSCULAR HGB CONC 34.3 g/dL (32.0-36.0); MEAN CORPUSCULAR VOLUME 93 fl (80-97); MONOCYTES % (AUTO) 6.3 % (3-13); PLATELET COUNT 274 10^3/uL (150-450); RED BLOOD COUNT 4.27 10^6/uL (3.72-5.28); RED CELL DISTRIBUTION WIDTH 13.6 % (11.5-14.0); TOTAL CELLS COUNTED % (AUTO) 100 %
[2020-01-04 10:24] LABS: APPEARANCE,URINE SLIGHTLY-CLOUDY; BILIRUBIN,URINE NEGATIVE (NEGATIVE); COLOR,URINE YELLOW; GLUCOSE, URINE NEGATIVE (NEGATIVE); KETONES,URINE NEGATIVE (NEGATIVE); PROTEIN,URINE NEGATIVE (NEGATIVE); URINE SPECIFIC GRAVITY 1.012; UROBILINOGEN,URINE NEGATIVE mg/dL (<2.0)
[2020-01-04 10:32] LABS: ALBUMIN 4.5 g/dL (3.5-5.0); ALKALINE PHOSPHATASE 57 U/L (38-126); ANION GAP 8 (5-19); ASPARTATE AMINO TRANSFERASE 20 U/L (14-36); BILIRUBIN,TOTAL 1.7 mg/dL (0.2-1.3); BLOOD UREA NITROGEN 5 mg/dL (7-20); CALCIUM 9.5 mg/dL (8.4-10.2); CARBON DIOXIDE 27 mmol/L (22-30); CHLORIDE 102 mmol/L (98-107); GLUCOSE 118 mg/dL (75-110); POTASSIUM 3.7 mmol/L (3.6-5.0)
--- NOTE | 2020-01-04 14:00 | ER Document Report ---
ED General - General Chief Complaint: Vomiting Stated Complaint: VOMITING Time Seen by Provider: 01/04/20 09:35 Primary Care Provider: SUSY MENG FNP-C [Primary Care Provider] - Follow up as needed Mode of Arrival: Ambulatory Information source: Patient TRAVEL OUTSIDE OF THE [place] IN LAST 30 DAYS: No - HPI Notes: Patient presents with abdominal pain vomiting and diarrhea. She states this been going on for 1 month. Is been intermittent. Nothing makes it better or worse. The crampy sensation she has in her abdomen does radiate across the abdomen. It is been moderate in intensity. She states she is concerned that s he is . Her periods have been normal. She has no vaginal discharge or bleeding. No urinary symptoms. No fevers. No previous abdominal surgeries. - Related Data Allergies/Adverse Reactions: Iodine and Iodide Containing Produc Allergy (Verified 01/04/20 12:51) latex Allergy (Verified 01/04/20 12:51) Penicillins Allergy (Verified 01/04/20 12:51) promethazine [From Phenergan] Allergy (Verified 01/04/20 12:51) Past Medical History - General Information source: Patient - Social History Smoking Status: Current Every Day Smoker Frequency of alcohol use: None Drug Abuse: None Family History: Reviewed & Not Pertinent Patient has suicidal ideation: No Patient has homicidal ideation: No Pulmonary Medical History: Reports: Hx Asthma Renal/ Medical History: Denies: Hx Peritoneal Dialysis Past Surgical History: Reports: Hx Section, Hx Gynecologic Surgery - D&C, Hx Orthopedic Surgery Review of Systems - Review of Systems Constitutional: denies: Chills, Fever Cardiovascular: denies: Chest pain, Palpitations Respiratory: denies: Cough, Short of breath -: Yes All other systems reviewed and negative Physical Exam - Vital signs Vitals: Temp Pulse Resp BP Pulse Ox 98.3 F 67 20 104/58 L 97 01/04/20 08:55 01/04/20 08:55 01/04/20 08:55 01/04/20 08:55 01/04/20 08:55 Interpretation: Normal - General General appearance: Appears well, Alert - HEENT Head: Normocephalic, Atraumatic Eyes: Normal Pupils: PERRL - Respiratory Respiratory status: No respiratory distress Chest status: Nontender Breath sounds: Normal Chest palpation: Normal - Cardiovascular Rhythm: Regular Heart sounds: Normal auscultation Murmur: No - Abdominal Inspection: Normal Distension: No distension Bowel sounds: Normal Tenderness: Nontender Organomegaly: No organomegaly - Back Back: Normal, Nontender - Extremities General upper extremity: Normal inspection, Nontender, Normal color, Normal ROM, Normal temperature General lower extremity: Normal inspection, Nontender, Normal color, Normal ROM, Normal temperature, Normal weight bearing. No: Toshia's sign - Neurological Neuro grossly intact: Yes Cognition: Normal Orientation: AAOx4 Althea Coma Scale Eye Opening: Spontaneous [place] Coma Scale Verbal: Oriented [place] Coma Scale Motor: Obeys Commands [place] Coma Scale Total: 15 Speech: Normal Motor strength normal: LUE, RUE, LLE, RLE Sensory: Normal - Psychological Associated symptoms: Normal affect, Normal mood - Skin Skin Temperature: Warm Skin Moisture: Dry Skin Color: Normal Course - Re-evaluation Re-evalutation: 01/04/20 13:51 Patient presents with nausea vomiting diarrhea and some crampy abdominal pain. Abdominal exam was unremarkable. Vital signs are unremarkable. I do not feel that the patient would benefit from imaging. I think the patient would best benefit from following up with gastroenterology. Laboratories are also unrema rkable. - Vital Signs Vital signs: Temp Pulse Resp BP Pulse Ox 98.3 F 67 20 104/58 L 97 01/04/20 08:55 01/04/20 08:55 01/04/20 08:55 01/04/20 08:55 01/04/20 08:55 - Laboratory Result Diagrams: 01/04/20 09:40 01/04/20 09:40 Laboratory results interpreted by me: 01/04/20 09:40 BUN 5 L Glucose 118 H Total Bilirubin 1.7 H Discharge - Discharge Clinical Impression: Vomiting Qualifiers: Vomiting type: unspecified Vomiting Intractability: intractable Nausea presence: with nausea Qualified Code(s): R11.2 - Nausea with vomiting, unspecified Condition: Stable Disposition: HOME, SELF-CARE Instructions: Vomiting ([facility]) Additional Instructions: Please call a automatic grinding machine operator as soon as possible Prescriptions: Metoclopramide HCl [Reglan] 10 mg PO Q6 PRN 3 Days #12 tablet PRN Reason: Referrals: WADE RODRIGUES MD [ACTIVE STAFF] - Follow up in 1 week
== END 2020-01-04 14:16 | disposition home or self-care (01) ==
LOC: ER 08:52
DX: R11.2 Nausea with vomiting, unspecified (principal); R19.7 Diarrhea, unspecified; R10.9 Unspecified abdominal pain; J45.909 Unspecified asthma, uncomplicated; F17.200 Nicotine dependence, unspecified, uncomplicated; Z88.0 Allergy status to penicillin; Z91.040 Latex allergy status; Z88.8 Allergy status to other drugs, medicaments and biological substances
CPT/HCPCS: 36415; 80053; 81001; 83690; 84703; 85025; 99284

== ENCOUNTER 2020-05-24 19:48 | Emergency (ER) | payer MEDICAID ==
[2020-05-24] MEDS ORDERED: NORMAL SALINE 1000 ML 1,000 ML IV ONE (20:51)
[2020-05-24] MEDS ORDERED: FAMOTIDINE 20 MG TABLET PO ONE (20:51)
--- NOTE | 2020-05-24 20:58 | ER Document Report ---
ED Allergic Reaction - General Chief Complaint: Allergic Reaction Stated Complaint: POSSIBLE ALLERGIC REACTION Time Seen by Provider: 05/24/20 20:29 Primary Care Provider: ZEUS LUEVANO PA-C [PHYSICIAN AUXILIARY PLANT OPERATOR] - Follow up tomorrow Mode of Arrival: Medic Information source: Patient Notes: 29-year-old female presented to ED for allergic reaction while walking on the beach. She states she is allergic to seafood but she was at the beach playing in the beach 1 hours nightly she started having the allergic reactions like she has when she eats seafood. She states that her skin and her whole body was on fire and then she thinks that she passed out. She states there was no swelling to her throat or her tongue. She states she feels a lot better now that they gave her some epinephrine and some Benadryl but she still feels a little loopy from the Benadryl. Patient is alert oriented answering all questions appropriate TRAVEL OUTSIDE OF THE [place] IN LAST 30 DAYS: No - HPI Onset: Just prior to arrival Onset/Duration: Sudden Quality of pain: Burning, Pressure Severity: Moderate Pain Level: 3 Identified cause: Possibly - Walking on the beach in the sand Associated symptoms: Dizziness, Lightheaded, Other - Burning on the inside and out Similar symptoms previously: Yes Recently seen / treated by doctor: No - Related Data Allergies/Adverse Reactions: Iodine and Iodide Containing Produc Allergy (Verified 05/24/20 20:07) latex Allergy (Verified 05/24/20 20:07) Penicillins Allergy (Verified 05/24/20 20:07) promethazine [From Phenergan] Allergy (Verified 05/24/20 20:07) Past Medical History - General Information source: Patient - Social History Smoking Status: Current Every Day Smoker Cigarette use (# per day): Yes - 1/2 pack/day Smoking Education Provided: Yes - 4 minutes Frequency of alcohol use: None Drug Abuse: Marijuana Lives with: Parents Family History: Reviewed & Not Pertinent Patient has homicidal ideation: No - Past Medical History Cardiac Medical History: Reports: Hx Atrial Fibrillation Pulmonary Medical History: Reports: Hx Asthma EENT Medical History: Reports: None Neurological Medical History: Reports: None Endocrine Medical History: Reports: None Renal/ Medical History: Reports: None Malignancy Medical History: Reports: None GI Medical History: Reports: None Musculoskeletal Medical History: Reports None Skin Medical History: Reports None Psychiatric Medical History: Reports: None Traumatic Medical History: Reports: None Infectious Medical History: Reports: None Past Surgical History: Reports: Hx Section, Hx Gynecologic Surgery - D&C Review of Systems - Review of Systems Constitutional: No symptoms reported EENT: No symptoms reported Cardiovascular: Dizziness, Lightheaded Respiratory: No symptoms reported Gastrointestinal: No symptoms reported Genitourinary: No symptoms reported Female Genitourinary: No symptoms reported Musculoskeletal: Other - Burning on fire inside and out of her body states that is relieved now Skin: No symptoms reported Hematologic/Lymphatic: No symptoms reported Neurological/Psychological: No symptoms reported -: Yes All other systems reviewed and negative Physical Exam - Vital signs Vitals: Resp BP Pulse Ox 19 113/60 99 05/24/20 19:57 05/24/20 19:57 05/24/20 19:57 Interpretation: Normal - General General appearance: Appears well, Alert - HEENT Head: Normocephalic, Atraumatic Eyes: Normal Pupils: PERRL Ears: Normal External canal: Normal Tympanic membrane: Normal Sinus: Normal Nasal: Normal Mouth/Lips: Normal Mucous membranes: Normal Pharynx: Normal Neck: Normal - Respiratory Respiratory status: No respiratory distress Chest status: Nontender Breath sounds: Normal Chest palpation: Normal - Cardiovascular Rhythm: Regular Heart sounds: Normal auscultation Murmur: No - Abdominal Inspection: Normal Distension: No distension Bowel sounds: Normal Tenderness: Nontender Organomegaly: No organomegaly - Back Back: Normal, Nontender - Extremities General upper extremity: Normal inspection, Nontender, Normal color, Normal ROM, Normal temperature General lower extremity: Normal inspection, Nontender, Normal color, Normal ROM, Normal temperature, Normal weight bearing. No: Toshia's sign - Neurological Neuro grossly intact: Yes Cognition: Normal Orientation: AAOx4 Althea Coma Scale Eye Opening: Spontaneous [place] Coma Scale Verbal: Oriented [place] Coma Scale Motor: Obeys Commands [place] Coma Scale Total: 15 Speech: Normal Motor strength normal: LUE, RUE, LLE, RLE Sensory: Normal - Psychological Associated symptoms: Normal affect, Normal mood - Skin Skin Temperature: Warm Skin Moisture: Dry Skin Color: Normal Course - Re-evaluation Re-evalutation: 05/25/20 07:43 Patient was treated with epinephrine and Benadryl in the EMS. She states she was walking on the beach and had burning sensation inside and outside of her body. She states she is allergic to seafood. She states she did not eat anything. She did not have any swelling to her face or mouth did not have any trouble swallowing. She has had a burning sensation and became confused. I did give her Pepcid prednisone and more Benadryl. I did give her a prescription for EpiPen, prednisone, and Pepcid and instructions to please follow-up with her primary care doctor. Patient verbalized understanding and agreement with treatment plan and patient was discharged home - Vital Signs Vital signs: Temp Pulse Resp BP Pulse Ox 98.3 F 60 15 123/77 98 05/24/20 21:31 05/24/20 21:31 05/24/20 21:31 05/24/20 21:31 05/24/20 21:31 Discharge - Discharge Clinical Impression: allergic reaction to beach Condition: Stable Disposition: HOME, SELF-CARE Additional Instructions: ACUTE ALLERGIC REACTION: Your symptoms are due to an allergic reaction. Allergy can cause hives, swelling of the hands, feet, and face, hoarseness, and difficulty swallowing or breathing. It may be due to exposure to medication, animal dander, foods, infection, or insect bites. Medication is a common cause, even when prior use of this same medication caused no problems. Acute treatment may include adrenalin and antihistamines. Usually, the specific allergic agent can't be identified unless repeated episodes occur. Home treatment includes the following: (1) Stop any suspicious medications. This will be discussed with you. (2) Oral antihistamines for the next four to five days. Example, diphenhydramine (Benadryl) every four hours. (3) You may also use cimetidine (Tagamet), ranitidine (Zantac), or famotidine (Pepcid) every four hours if diphenhydramine is not controlling itching and hives. (4) Avoid aspirin until the hives completely disappear. (5) Avoid hot baths or showers until the hives are completely gone. Call the doctor if faintness, difficulty swallowing, tightness in the chest, or wheezing occurs. EPINEPHRINE: An injection of epinephrine (also called adrenalin) is used to treat allergic reactions, asthma, and some other medical conditions. It is a stimulant medication that consticts blood vessels, relaxes smooth muscles such as in the bronchioles of the lung, elevates blood pressure, and increases heart rate. It can temporarily make you feel very nervous and shakey, but it's affects last only a short time, about 15 to 30 minutes at most. STEROID MEDICATION: You have been given a medicine of the cortisone/steroid class. This medication is used to control inflammation or allergy. It is usually only given for a short period of time, until the acute process subsides. There are usually no side effects from short-term use of cortisone-like medications. Some persons feel an increased sense of well-being and are not sleepy at bedtime. Long-term use of cortisone medications is best avoided, unless required for a severe condition. If your condition does not remit, or relapses after the course of corticosteroid medication, you should consult your physician. ACID-SUPPRESSING MEDICATION: You have a prescription for medicine which reduces the stomach's secretion of acid. Examples include Zantac, Tagament, and Pepcid. These drugs are often used to allow healing of ulcers or esophagitis. They may be needed to prevent recurrence of ulcers in some patients, or to prevent damage from acid reflux in the esophagus. Take all medication as prescribed, even after the pain is gone. Regular antacids may be added as needed if you have symptoms while taking this medicine. These medications sometimes are prescribed for allergic reactions because they have anti-histaminic effects and relieve the rash and itching of the reaction. There are usually no side effects from this medication. But, in rare cases and particularly in the elderly, serious problems can occur. Contact your doctor if there is fever, rash, hallucinations, confusion, or unusual bruising. Contact your doctor at once if you develop lightheadedness, black or bloody stool, or bloody vomitus. ANTIHISTAMINES: An antihistamine has been given and/or prescribed to control your symptoms. Antihistamines are used for many reasons, including itching, watering eyes, runny nose, allergic swelling, hives, and insect stings. Antihistamines may cause drowsiness, especially with the first dose. Do not operate machinery or drive while under the effects of the medication. Other common side effects include dry mouth and eyes. In older persons, antihistamines can occasionally cause urinary retention, constipation, and trouble focusing the eyes. Do not combine the medication with alcohol, or with any other medication without talking to your doctor. USE OF DIPHENHYDRAMINE: The use of diphenhydramine (Benadryl) has been recommended to control allergic symptoms. The 25 mg strength is available over- the-counter, as well as the elixir. This antihistamine is used for many symptoms. It's useful for itching, watering eyes and nose, allergic swelling, hives, and insect stings. The medication can be repeated four times daily. Age Elixir (12.5 mg/tsp) 25 mg pill 2-3 yr 1/2 tsp 4-8 yr 1 tsp 9-14 yr 2 tsp one tab adult 1-2 tabs Antihistamines may cause drowsiness, especially with the first dose. Do not operate machinery or drive while under the effects of the medication. Do not combine the medication with alcohol, or with any other medication without talking to your doctor. FOLLOW-UP CARE: If you have been referred to a physician for follow-up care, call the physicians office for an appointment as you were instructed or within the next two days. If you experience worsening or a significant change in your symptoms, notify the physician immediately or return to the Emergency Department at any time for re-evaluation. Prescriptions: Prednisone [Deltasone 20 mg Tablet] 2 tab PO DAILY 5 Days #10 tablet Epinephrine [Epipen 2-Roderick] 0.3 mg IJ ASDIR PRN #1 auto.injct PRN Reason: Famotidine [Pepcid 20 mg Tablet] 20 mg PO BID #12 tablet Forms: Elevated Blood Pressure, Return to Work Referrals: ZEUS LUEVANO PA-C [PHYSICIAN AUXILIARY PLANT OPERATOR] - Follow up tomorrow
[2020-05-24] MEDS ORDERED: PREDNISONE 20 MG TABLET PO ONE (21:12)
[2020-05-24 21:32] VITALS: BP 123/77
--- NOTE | 2020-05-25 10:01 | EKG REPORT ---
SEVERITY:- NORMAL ECG - SINUS RHYTHM : Confirmed by: Humera Buchanan 25-May-2020 10:01:01
== END 2020-05-24 21:41 | disposition home or self-care (01) ==
LOC: ER 19:48
DX: T78.40XA Allergy, unspecified, initial encounter (principal); Z88.8 Allergy status to other drugs, medicaments and biological substances; F17.210 Nicotine dependence, cigarettes, uncomplicated; J45.909 Unspecified asthma, uncomplicated
CPT/HCPCS: 93005; 99406; 99285; 82962; 93010; J3490; J7512; J7030; 96360